=== PATIENT | male | born 1965 | race Two or more races ===

== ENCOUNTER 2023-12-17 07:57 | Outpatient (CLI) | payer OTHER ==
[~2023-12-17 07:57] MED LIST: PREGABALIN50 MG PO
== END 2023-12-17 08:01 | disposition home or self-care (01) ==
LOC: NUCLEAR 07:57
PROVIDERS: ATTEND Specialist
DX: I87.2 Venous insufficiency (chronic) (peripheral) (principal)

== ENCOUNTER 2024-02-16 09:05 | Outpatient (CLI) | payer OTHER | END 2024-02-16 09:14 | disposition home or self-care (01) | LOC: RAD 09:05 | PROVIDERS: ATTEND Physical Medicine & Rehabilitation | DX: M79.661 Pain in right lower leg (principal); M54.50 Low back pain, unspecified ==

== ENCOUNTER 2025-04-15 09:12 | Emergency (ER) | payer OTHER ==
[~2025-04-15] VITALS: Ht 180.3 cm; Wt 107.5 kg
[2025-04-15 10:25] LABS: BASO % 0.7 % (0.1-1.2); EOS # 0.22 (0.04-0.54); EOS % 2.9 % (0.7-7.0); HEMATOCRIT 42.3 % (40.1-51.0); HEMOGLOBIN 14.5 g/dL (13.7-17.5); LYMPH # 2.54 (1.18-3.74); LYMPH % 33.2 % (19.3-53.1); MEAN CORPUSCULAR HEMOGLOBIN 33.2 pg (25.6-32.2); MONO # 0.48 (0.24-0.82); MONO % 6.3 % (4.7-12.5); NEUT # 4.35 (1.56-6.13); NEUT % 56.6 % (34.0-71.1); PLATELET COUNT 256 K/uL (163-369); RED BLOOD COUNT 4.37 M/uL (4.63-6.08); RED CELL DISTRIBUTION WIDTH 12.2 % (11.6-14.4)
[2025-04-15 10:49] LABS: ALBUMIN 3.7 gm/dL (3.4-5.0); BILIRUBIN TOTAL 0.57 mg/dL (0.3-1.2); CALCIUM 9.1 mg/dL (8.5-10.1); CREATININE SERUM 0.83 mg/dL (0.70-1.30); GFR 95.16; GLOBULINA 3.9 G/DL (2.4-3.5); TOTAL PROTEIN 7.6 gm/dL (6.4-8.2)
== END 2025-04-15 11:12 | disposition home or self-care (01) ==
LOC: ER 09:12
PROVIDERS: General Practice
DX: R60.0 Localized edema (principal); M25.521 Pain in right elbow